=== PATIENT | male | born 1950 | race Caucasian/White ===

== ENCOUNTER 2017-03-12 11:28 | Emergency (ER) | payer BC, MEDICARE, OTHER ==
[~2017-03-12] VITALS: Ht 162.6 cm; Wt 74.9 kg
[2017-03-12] MEDS ORDERED: LISI-170 PO (11:50)
[2017-03-12] MEDS ORDERED: SIMV40TA3 PO (11:51)
[2017-03-12] MEDS ORDERED: OMEP40CA6 PO (11:53)
[2017-03-12 11:55] VITALS: BP 132/78
[2017-03-12] MEDS ORDERED: CARBAMIDE PEROXIDE EAR DROPS 6.5%, 15ML ONE (12:14)
[2017-03-12] MEDS ORDERED: CARBAMIDE PEROXIDE EAR DROPS 6.5%, 15ML LEFT EAR ONE (12:30)
[2017-03-12] MEDS ORDERED: CARBAMIDE PEROXIDE EAR DROPS 6.5%, 15ML RIGHT EAR ONE (12:30)
== END 2017-03-12 14:34 | disposition home or self-care (01) ==
LOC: ED 12:37
DX: H61.23 Impacted cerumen, bilateral (principal); I10 Essential (primary) hypertension
CPT/HCPCS: 69209; 93005; 99282; 99283